=== PATIENT | female | born 1985 | race Caucasian/White ===

== ENCOUNTER 2020-11-27 17:29 | Emergency (ER) | payer OTHER, SELFPAY ==
[2020-11-27 17:51] VITALS: BP 115/73; PULSE 69; RESP 18; TEMP 36.5; O2SAT 100
--- NOTE | 2020-11-27 17:53 | ED.FEMALEGU ---
HPI - Female Genitourinary General Chief complaint: Urogenital-Female Stated complaint: nausea,fatigue Source: patient Mode of arrival: ambulatory Limitations: no limitations History of Present Illness HPI Narrative: This is a 35-year-old female that presented to urgent care with complaints nausea and severe fatigue. Patient has been feeling nauseated and fatigue for approximately 2 weeks. Patient did take a Reglan test which was negative, she is not on any control. She did note that approximately 1 week ago she started her. She is also having cramps like she is about to start her period again. Patient UA did show leukocytes her test was negative. I did inform the patient that she will need to repeat her test within 1 to 2 weeks and to avoid anything that might harm the fetus if she is . The patient denies SOB, CP, palpitation, extremity numbness, lightheadedness, dizziness, constipation, diarrhea, chills, or fever. Related Data Allergies Allergy/AdvReac Type Severity Reaction Status Date / Time No Known Allergies Allergy Verified 11/27/20 17:55 Review of Systems Review of Systems: All systems reviewed & are unremarkable except as noted in HPI and below (10 point system review) [facility] Social History Social History Gender identity (if verbalized by the patient): Female Exam Narrative: Exam Narrative: GENERAL: This is a well-nourished, well-developed patient, in no apparent distress. HEAD: normocephalic, atraumatic. EYES: PERRL. Sclera clear/white. Vision is grossly intact. EARS: External ears normal, auditory canals clear and without drainage, TMs normal without perforation. Hearing grossly intact. NOSE: External nose normal with no obvious nasal discharge, nares without redness, no rhinorrhea. THROAT: Mucous membranes moist, posterior pharynx clear. NECK: Neck supple, non-tender without lymphadenopathy, masses or thyromegaly. CARDIOVASCULAR: Regular rate and rhythm without murmurs, gallops, or rubs. RESPIRATORY: Clear to auscultation. Breath sounds equal bilaterally. No wheezes, rales, or rhonchi. GASTROINTESTINAL: Abdomen soft, non-tender, nondistended. Bowel sounds are active. No hepato-splenomegaly, or palpable masses. No guarding. SKIN: warm, intact with no suspicious lesions or rash, good texture and turgor. NEURO: awake, alert, and oriented to person, place and time. There were no obvious focal neurologic abnormalities. Steady gait EXTREMITIES: Normal range of motion. No edema. No calf tenderness. Negative Homans sign bilaterally. BACK: Nontender without deformity or crepitance. No flank tenderness. Course Vital Signs Vital signs: Vital Signs Temperature 97.7 F 11/27/20 17:51 Pulse Rate 69 11/27/20 17:51 Respiratory Rate 18 11/27/20 17:51 Blood Pressure 115/73 11/27/20 17:51 Pulse Oximetry 100 11/27/20 17:51 Temperature 97.7 F 11/27/20 17:51 Pulse Rate 69 11/27/20 17:51 Respiratory Rate 18 11/27/20 17:51 Blood Pressure 115/73 11/27/20 17:51 Pulse Oximetry 100 11/27/20 17:51 MDM - Female Genitourinary Differential Diagnosis Differential diagnosis: Likely urinary tract infection and other () Lab Data Attestation: I reviewed the patient's lab results. Lab results narrative: UA with leukocytes negative Labs: UCG Bedside Result Negative Reference Range: Negative Urine Glucose Negative Reference Range: Negative Urine Bilirubin Negative Reference Range: Negative Urine Ketone Negative Reference Range: Negative Urine Specific [place] 1.020 Reference R
== END 2020-11-27 18:17 | disposition home or self-care (01) ==
LOC: EXPTROY 17:39
PROVIDERS: Emergency Provider Nurse Practitioner
DX: N30.00 Acute cystitis without hematuria (principal)
CPT/HCPCS: 81003; 81025; 87086; 87088; 99203; G0463

== ENCOUNTER 2022-02-27 12:52 | Emergency (ER) | payer OTHER, SELFPAY ==
--- NOTE | 2022-02-27 13:00 | ED.ABDPAIN ---
HPI - Abdominal Pain General Chief Complaint: Nausea/Vomiting/Diarrhea Stated Complaint: Diarrhea,Nausea,Abdominal Pain,Headache Time Seen by Provider: 02/27/22 13:15 Source: patient and RN notes reviewed Mode of arrival: ambulatory Limitations: no limitations History of Present Illness HPI narrative: 36-year-old female presents with concern for abdominal pain, diarrhea, nausea, headache. She reports general malaise, denies fever. She denies vomiting. She reports symptoms started today. Reports the diarrhea is frequent and in large amounts, causing her twice to lose control of her bowels. She reports the diarrhea is black in color. She reports she took Pepto-Bismol without relief. MD elicited complaint: abdominal pain Related Data Home Medications Medication Instructions Recorded Confirmed No Home Medications 02/27/22 02/27/22 Allergies Allergy/AdvReac Type Severity Reaction Status Date / Time No Known Allergies Allergy Verified 02/27/22 13:09 Review of Systems Review of Systems: CONSTITUTIONAL: Reports malaise, chills, sweats, or fever. ENT: Denies rhinorrhea, congestion, sinus pain, otalgia or sore throat. CARDIOVASCULAR: Denies chest pain, palpitations, or edema. RESPIRATORY: Denies cough or dyspnea. GASTROINTESTINAL: Reports abdominal pain, nausea, large amounts of black-colored diarrhea GENITOURINARY: Denies dysuria or hematuria. MUSCULOSKELETAL: Denies myalgia. NEUROLOGIC: Reports headache. All systems reviewed & are unremarkable except as noted in HPI and below PMFSH Social History Social History Gender identity (if verbalized by the patient): Female Comments At time of signature, agree with nursing past medical, surgical, social and family history. There is no relevant family history pertinent to the presenting complaint Exam Narrative: GENERAL: Nontoxic-appearing and in no acute distress HEAD: Normocephalic, atraumatic. EYES: PERRLA, conjunctivae clear ENT: Mucous membranes moist. NECK: Supple. CHEST: Speaks in full sentences. No respiratory distress. HEART: Regular rate and rhythm. SKIN: Warm, dry, no visible rash. NEURO: Alert and oriented x3. PSYCH: Normal mood and affect Course Course Emergency Course: Explained to patient that black-colored stools could be related to the Pepto-Bismol that she took, however given her large amounts of stool and her apparent discomfort patient warrants further evaluation and treatment in the emergency department Patient is aware, understands and agrees to reasons to be transferred to the emergency room. Patient agrees to proceed directly to the emergency department. Portions of this record may have been created with voice recognition software Level of Care: Express Care Visit Vital Signs Vital signs: Reviewed. Transfer Transfered to: [place] Transportation: Other Transfer rationale: Abdominal pain and diarrhea Accepting physician: Sony Transfer comments: Patient stable for transfer via private vehicle MDM - Abdominal Pain MDM Narrative Medical decision making narrative: Exam findings history warrant further evaluation the emergency department; patient is non-toxic appearing and is in no distress. Patient is appropriate for transfer via private vehicle Critical Care Time Critical Care Time Critical Care Time: No Discharge Plan Discharge Clinical Impression: Diarrhea Patient Disposition: Acute Care Hospital Condition: Stable Prescriptions: No Action No Home Medications RF: 0 Follow-up/Referrals: [facility], [Primary Care Provider] - Time of Disposition: 13:29
[2022-02-27 13:02] VITALS: BP 115/71; PULSE 92; RESP 18; TEMP 36.4; O2SAT 100
== END 2022-02-27 13:20 | disposition short-term general hospital (02) ==
PROVIDERS: Emergency Provider Nurse Practitioner
DX: R19.7 Diarrhea, unspecified (principal); Z20.822 Contact with and (suspected) exposure to COVID-19
CPT/HCPCS: 87426; 99212; C9803; G0463

== ENCOUNTER 2022-07-16 19:00 | Emergency (ER) | payer OTHER, SELFPAY ==
--- NOTE | 2022-07-16 19:28 | ED.URI ---
HPI - URI/Sore Throat General Chief Complaint: Upper Respiratory Infection Stated Complaint: . Time Seen by Provider: 07/16/22 19:30 Source: patient and RN notes reviewed Mode of arrival: ambulatory Limitations: no limitations History of Present Illness HPI Narrative: 37-year-old female presented for complaint of headache, body aches, sinus pressure/congestion, cough, fever/chills. Onset today. Endorses known COVID exposure about 3 days ago, who tested positive today. She denies shortness of breath, wheezing, vomiting. Endorses family members with similar symptoms. MD elicited complaint: cough Related Data Home Medications Medication Instructions Recorded Confirmed No Home Medications 02/27/22 02/27/22 Allergies Allergy/AdvReac Type Severity Reaction Status Date / Time No Known Allergies Allergy Verified 07/16/22 20:03 Review of Systems Review of Systems: CONSTITUTIONAL: Endorses malaise, chills, sweats, fever EYES: Denies visual changes, redness, or discharge ENT: Reports rhinorrhea, congestion, sinus pain, otalgia, sore throat CARDIOVASCULAR: Denies chest pain, palpitations, edema RESPIRATORY: Reports cough, post nasal drainage. Denies dyspnea GASTROINTESTINAL: Denies abdominal pain, vomiting, diarrhea SKIN: Denies rash or itching MUSCULOSKELETAL: Endorses myalgia NEUROLOGIC: Endorses headache PMFSH Social History Social History Gender identity (if verbalized by the patient): Female Exam Narrative: GENERAL: Ill-appearing, nontoxic EYES: conjunctivae clear ENT: Mucous membranes moist. TM pearly srinivasan with dull light reflex bilaterally; no tragal tenderness. CHEST: Clear to auscultation, breath sounds equal. HEART: Regular rate and rhythm. No murmur heard. SKIN: Warm, dry, no rash. NEURO: Alert and oriented x3. PSYCH: Normal mood and affect Course Course Emergency Course: Patient is aware of diagnosis, understands and agrees to treatment plan. Anticipatory guidance given. Patient agrees to follow-up as directed and is aware of reasons to seek care at the emergency department. Portions of this record may have been created with voice recognition software Level of Care: Express Care Visit Vital Signs Vital signs: Vital Signs Temperature 99.3 F 07/16/22 19:40 Pulse Rate 113 H 07/16/22 19:40 Respiratory Rate 16 07/16/22 19:40 Blood Pressure 116/73 07/16/22 19:40 Pulse Oximetry 100 07/16/22 19:40 Oxygen Delivery Room Air 07/16/22 19:40 Temperature 99.3 F 07/16/22 19:40 Pulse Rate 113 H 07/16/22 19:40 Respiratory Rate 16 07/16/22 19:40 Blood Pressure 116/73 07/16/22 19:40 Pulse Oximetry 100 07/16/22 19:40 Oxygen Delivery Room Air 07/16/22 19:40 reviewed MDM - URI/Sore Throat MDM Narrative Medical decision making narrative: COVID-negative. Advised to retest in 1-2 days due to symptoms and known exposure. Advised supportive measures and signs/symptoms to go to the ER. Pt is appropriate for outpt treatment and f/u. Differential Diagnosis Differential diagnosis: Likely upper respiratory infection, sinusitis and viral infection Discharge Plan Discharge Clinical Impression: Viral infection, Close exposure to 2019-nCoV Patient Disposition: Home, Self-Care Condition: Stable Instructions: Antibiotic Form, COVID-19 (Coronavirus Disease 2019) (ED) Additional Instructions: Your Rapid COVID test was negative today. If you are symptomatic with reason to believe you have COVID-19, there is a high possibility your rapid test may not have detected the virus. You should follow appropriate guidelines regarding quarantine, hand washing, mask wearing, and social distancing Avoid crowds if you have a fever Highly recommend retesting in 1-2 days Rest, stay hydrated. Tylenol, Flonase/nasal spray, Zyrtec, cough syrup and cold/flu medications for symptoms as needed Follow up with your primary ca
[2022-07-16 19:40] VITALS: BP 116/73; PULSE 113; RESP 16; TEMP 37.4; O2SAT 100
== END 2022-07-16 20:15 | disposition home or self-care (01) ==
PROVIDERS: Emergency Provider Nurse Practitioner Family
DX: B34.9 Viral infection, unspecified (principal); Z20.822 Contact with and (suspected) exposure to COVID-19
CPT/HCPCS: 87426; 99213; C9803; G0463